=== PATIENT | female | born 1960 | race Caucasian/White ===

== ENCOUNTER → 2016-07-16 | Outpatient (CLI) | payer OTHER ==
[~2016-07-16] VITALS: Ht 170.2 cm; Wt 75.4 kg
[~2016-07-16] MED LIST: AMBIEN 10 MG TA10 MG PO; AMBIEN 5 MG TABL5 M1 PO; APRI1 EACH PO; DILAUDID 4 MG TA4 M1 PO; ENDOCET 10-3251 EACH PO; FISH OIL 1,0001 EAC5 PO; HYSINGLA ER20 MG PO; IBUPROFEN 800800 M1 PO; KLONOPIN0.5 MG PO; LO LOESTRIN FE1 EACH PO; OPANA ER10 M1 PO; OXECTA5 MG PO; OXYCODONE-ACET1 EAC2 PO; PERCOCET 10-321 EACH PO; RELPAX40 MG PO
--- NOTE | ~2016-07-16 | HPC ---
[facility] [place] [address] PAIN MANAGEMENT CONSULTATION Name: RIA LIZ Room #: REG KENA Palomares#: [id number] Admission: 07/16/16 Attend Phys: Gary Lopez DO Discharge: Date of : 60 Report #: [id number] THIS REPORT FOR: //name// CC: Sapphire Lopez The patient is a 56-year-old female being treated for chronic lumbar radiculopathy, status post decompressive laminectomy, right shoulder pain, history of migraine headaches, requiring complex medication management. Last seen in the pain clinic 04/16/2016. Urine drug screen was accomplished on last visit. Unfortunately, it was negative for oxycodone and positive for the tablets of clonazepam. The patient notes she had not been taking oxyocodone the prior few days. She has generally been very consistent with her medications. No problems with early refills and no aberrant behavior suggestive for drug diversion. We did elect to get another UDS today. It should be positive for oxycodone and metabolites of clonazepam. She returns to pain clinic today. She had significant stress at last visit. Her son had been diagnosed with lymphoma. She tells me that he is currently in treatment. She also had some stress with daughter who recently got after a very short (1 week) courtship. Nonetheless, the patient herself is doing reasonably well. She states that 2 recent long car rides exacerbated her back and right knee pain. States the right arm still feels a little bit weak and achy. Notes she has constant aching pain, rates as 6 on a 0-10 visual analog scale, exacerbated with vacuuming, walking, lifting and bending. PHYSICAL EXAMINATION: Relatively unchanged, a 56-year-old female, BMI is 26 kilograms per meter squared. Vital signs are stable as noted in the EMR. Denies tobacco use. Cervical range of motion is good. Upper extremity strength is generally symmetric, though she does have some decreased right arm range of motion. Gait is tandem. Diffuse axial back pain. We reviewed the fact that opiate medications are being used to provide analgesia adequate to support activities of daily living, not attempting to achieve a specific pain score on the 0-10 Visual Analog Scale. The current opiate medications are providing sufficient analgesia to allow the patient to participate in activities of daily living. The patient is not exhibiting any aberrant behavior suggestive of drug diversion. The patient is not having any adverse reactions to medications. The patient is not suffering from daytime somnolence or mental acuity changes. The patient is managing opiate-induced constipation with appropriate [id number] agents and dietary considerations. The patient was counseled on concern for caution with operating a motor vehicle while using opiate medications. [address] [address] PAIN MANAGEMENT CONSULTATION Name: RIA LIZ Room #: REG KENA Palomares#: [id number] Admission: 07/16/16 Attend Phys: Gary Lopez DO Discharge: Date of : 60 Report #: [id number] A physical exam was performed and the patient's functional status was evaluated. All patients with back pain were advised against the bed rest greater than 4 days and were advised to return to normal activities. Pain score assessment was noted and the treatment plan was reviewed with the patient. All current medications, both prescribed and OTC were reviewed and reconciled on the electronic medical record. Tobacco screening was accomplished and smoking cessation was advised when indicated. BMI was noted and diet/exercise modification was recommended for all patients following outside normal parameters. I reviewed with the patient today their responsibilities to safeguard prescription medications, reviewed their responsibility to utilize medications only as prescribed by the physician. They are to seek and receive pain medications only from 1 physician group ( [facility]). They are to use 1 pharmacy and keep the clinic informed if they change pharmacies. Their responsibilities include making followup visits in a timely fashion and to avoid abrupt discontinuation of medication usage. Their responsibilities further include bringing their medications (bottles from the pharmacy with residual pills) to the visit for possible confirmation of pill counts and the patient understands it is their responsibility to submit to random drug screens to ensure both that the medications prescribed are present, and that no other controlled substances are present. All prescriptions provided today were generated electronically. ASSESSMENT: Lumbar radiculopathy, status post decompressive laminectomy, history of right shoulder pain, migraine headaches, requiring complex medication management. RECOMMENDATIONS: Repeat a urine drug screen today, taken the liberty of renewing current medications including Percocet 10/325 up to 4 a day, ibuprofen 800 mg t.i.d.; Relpax 40 mg, limit 12 tablets for 30 days; clonazepam 0.5 at bedtime, limit 20 tablets for 30 days. <ELECTRONICALLY SIGNED> By: Gary Lopez DO 07/17/16 [id number] 1820 Gary Lopez DO /nt
[2016-07-16 13:06] VITALS: BP 114/79
== END | disposition home or self-care (01) ==
LOC: PAIN 07:03
DX: M54.16 Radiculopathy, lumbar region (principal); M25.511 Pain in right shoulder; G43.909 Migraine, unspecified, not intractable, without status migrainosus

== ENCOUNTER → 2016-08-24 | Outpatient (CLI) | payer OTHER ==
[2016-08-24 11:02] VITALS: BP 158/99
== END | disposition home or self-care (01) ==
LOC: PAIN 06:50
DX: G89.4 Chronic pain syndrome (principal); M25.511 Pain in right shoulder; Z79.899 Other long term (current) drug therapy